=== PATIENT | female | born 1935 | race Caucasian/White ===

== ENCOUNTER 2018-04-20 14:56 | Inpatient (IN) ==
--- NOTE | 2018-04-20 15:37 | Emergency Department Note ---
Disposition Clinical Impression: Dyspnea on exertion Pulmonary embolism Qualifiers: Pulmonary embolism type: other Chronicity: acute Acute cor pulmonale presence: without acute cor pulmonale Qualified Code(s): I26.99 - Other pulmonary embolism without acute cor pulmonale Disposition: Admitted As Inpatient Condition: Good Referrals: Caterina Bernal DO [Primary Care Provider] - Forms: ED Satisfaction Letter Time of Disposition: 18:59 General Adult HPI - General Chief complaint: ED Shortness of Breath/Dyspnea Stated complaint: MAURICE, Leg weakness Time Seen by Provider: 04/20/18 15:05 Source: patient Mode of arrival: ambulatory Limitations: no limitations - History of Present Illness HPI Narrative: This is an 83-year-old female comes to emergency department stating that starting 3 days prior to arrival she has had extreme dyspnea with exertion. It takes her a while to recover after minimal exertion, but at rest she feels fine. She reports no prior similar episodes. She is a liver transplant patient and is on immunosuppression. Pain Scale: 0 - Related Data Allergies Allergy/AdvReac Type Severity Reaction Status Date / Time shellfish derived Allergy Vomiting Verified 04/20/18 15:04 All systems ED: reviewed and negative except as stated. Cardiovascular: Reports: dyspnea on exertion. Denies: chest pain Past Medical History - Past Medical History Medical history: Reports: DVT, hyperlipidemia, hypertension, thyroid disease Psychiatric history: Reports: no psych history - Social History Smoking Status: Former smoker Smokeless Tobacco Status: No Alcohol use: Reports: none Drug use: Reports: none Physical Exam - General Limitations: no limitations General appearance: alert, in distress (In mild to moderate distress after moving from the wheelchair to the bed) - Head Head exam: atraumatic, normocephalic, normal inspection - Eye Eye exam: Present: normal appearance, PERRL, EOMI. Absent: scleral icterus - Chest Chest inspection: Present: normal inspection, symmetric chest wall rise - Respiratory Respiratory exam: Present: normal lung sounds bilaterally, respiratory distress (Mild respiratory distress after effort). Absent: wheezes, stridor, prolonged e xpiratory phase - Cardiovascular Cardiovascular exam: Present: regular rate, normal rhythm, normal heart sounds - Abdominal Exam Abdominal exam: Present: soft, Non-Tender. Absent: tenderness, distention, guarding, rebound, rigidity - Extremities Exam Extremities exam: Present: normal inspection, full ROM, pedal edema (There is 1+ pedal edema at the malleoli) - Neurological Exam Neurological exam: Present: alert, oriented X3 - Psychiatric Psychiatric exam: Present: normal affect, normal mood - Skin Skin exam: Present: warm, dry, intact, normal color Course Course Narrative: This is an 83-year-old female with an exam most concerning for CHF or pulmonary embolism. Vital Signs Temperature 97.4 F L 04/20/18 15:03 Pulse Rate 87 04/20/18 15:03 Respiratory Rate 16 04/20/18 15:03 Blood Pressure 134/83 04/20/18 15:03 O2 Sat by Pulse Oximetry 96 04/20/18 15:03 Temperature 97.4 F L 04/20/18 15:15 Pulse Rate 78 04/20/18 18:24 Respiratory Rate 16 04/20/18 18:24 Blood Pressure 145/95 04/20/18 18:24 O2 Sat by Pulse Oximetry 97 04/20/18 18:24 Oxygen Delivery Oxygen Delivery Room Air Medical Decision Making - MDM Narrative Medical decision making narrative: This is an 83-year-old female with 2-1/2 days of dyspnea on exertion. Evaluation is far as it could be done in the emergency department was concerning for multiple pulmonary emboli, and heparin was ordered because of this. VQ scan was also ordered because renal function was below that would prevent a CT angiog dillon case with the on-call hospitalist, who accepted her for admission. - Lab Data Lab results reviewed: Yes I reviewed the patient's lab results. Lab results narrative: CBC was unremarkable BMP showed BUN elevated at 30 and creatinine elevated 1.68 Troponin was slightly elevated 0.08 [place] [address] Result diagrams: 04/20/18 15:24 04/20/18 15:24 Lab Results 04/20/18 04/20/18 04/20/18 Range/Units 15:24 15:24 15:24 WBC 6.4 (4.3-11.1) K/mcL RBC 4.02 (3.82-4.97) M/mcL Hgb 11.3 L (11.5-15.4) g/dL Hct 36.9 (35.3-44.9) % MCV 91.8 (83.0-100.0) fL MCH 28.1 (28.0-33.3) pg MCHC 30.6 L (31.6-35.5) g/dL RDW 14.9 H (11.5-14.5) % Plt Count 166 (140-400) K/mcL MPV 10.8 (9.4-12.4) fL Immature Gran % 0.3 (0-4) % Seg Neutrophils % 84.1 % Lymphocytes % 6.1 % Monocytes % 8.9 % Eosinophils % 0.3 % Basophils % 0.3 % Neutrophils # 5.4 (1.6-8.9) K/mcL Lymphocytes # 0.4 L (0.6-4.6) K/mcL Monocytes # 0.6 (0.0-1.3) K/mcL Eosinophils # 0.0 (0.0-0.6) K/mcL Basophils # 0.0 (0.0-0.2) K/mcL D-Dimer [id number] H (0-500) ng/mLFEU Sodium 139 (136-145) mEq/L Potassium 4.5 (3.5-5.1) mEq/L Chloride 107 (98-107) mEq/L Carbon Dioxide 20 L (23-29) mEq/L BUN 30 H (8-23) mg/dL Creatinine 1.68 H (0.60-1.20) mg/dL Est GFR ( Amer) 35 L (> 60) Est GFR (Non-Af Amer) 29 L (> 60) BUN/Creatinine Ratio 18 (6-26) Glucose 132 H (70-105) mg/dL Calculated Osmolality 296 (280-300) Lactic Acid (0.5-2.2) mmol/L Calcium 9.5 (8.6-10.3) mg/dL Total Bilirubin 0.9 (0.3-1.0) mg/dL Direct Bilirubin 0.2 (0.0-0.2) mg/dL Indirect Bilirubin 0.7 (0.0-1.2) mg/dL AST 21 (13-39) Units/L ALT 14 (7-52) Units/L Alkaline Phosphatase 78 (34-104) Units/L Troponin I 0.08 H* (< 0.04) ng/mL Serum Total Protein 6.3 L (6.4-8.9) g/dL Albumin 4.0 (3.5-5.7) g/dL Globulin 2.3 L (2.4-3.5) g/dL Albumin/Globulin Ratio 1.7 (1.1-2.2) Specimen Rejected 04/20/18 04/20/18 Range/Units 15:24 17:05 WBC (4.3-11.1) K/mcL RBC (3.82-4.97) M/mcL Hgb (11.5-15.4) g/dL Hct (35.3-44.9) % MCV (83.0-100.0) fL MCH (28.0-33.3) pg MCHC (31.6-35.5) g/dL RDW (11.5-14.5) % Plt Count (140-400) K/mcL MPV (9.4-12.4) fL Immature Gran % (0-4) % Seg Neutrophils % % Lymphocytes % % Monocytes % % Eosinophils % % Basophils % % Neutrophils # (1.6-8.9) K/mcL Lymphocytes # (0.6-4.6) K/mcL Monocytes # (0.0-1.3) K/mcL Eosinophils # (0.0-0.6) K/mcL Basophils # (0.0-0.2) K/mcL D-Dimer (0-500) ng/mLFEU Sodium (136-145) mEq/L Potassium (3.5-5.1) mEq/L Chloride (98-107) mEq/L Carbon Dioxide (23-29) mEq/L BUN (8-23) mg/dL Creatinine (0.60-1.20) mg/dL Est GFR ( Amer) (> 60) Est GFR (Non-Af Amer) (> 60) BUN/Creatinine Ratio (6-26) Glucose (70-105) mg/dL Calculated Osmolality (280-300) Lactic Acid 1.2 (0.5-2.2) mmol/L Calcium (8.6-10.3) mg/dL Total Bilirubin (0.3-1.0) mg/dL Direct Bilirubin (0.0-0.2) mg/dL Indirect Bilirubin (0.0-1.2) mg/dL AST (13-39) Units/L ALT (7-52) Units/L Alkaline Phosphatase (34-104) Units/L Troponin I (< 0.04) ng/mL Serum Total Protein (6.4-8.9) g/dL Albumin (3.5-5.7) g/dL Globulin (2.4-3.5) g/dL Albumin/Globulin Ratio (1.1-2.2) Specimen Rejected Miscellaneous - Radiology Data Radiology results reviewed: Yes I reviewed the patient's radiology results. Chest x-ray was unremarkable CT without contrast was ordered because of her borderline renal function, and was interpreted by radiology as concerning for multiple thromboemboli. - EKG Data EKG #1 EKG attestation: Yes I reviewed and interpreted this EKG. EKG results narrative: ECG shows sinus rhythm, 87 bpm, Q waves in lead 3 and aVF, no other ST or T-wave abnormalities Critical Care Time Critical Care Time: Yes Total Critical Care Time: 30 Attestation: 30 minutes of critical care time was invested independent of separately billable procedures
[2018-04-20 16:02] LABS: Basophils % 0.3 %; Eosinophils % 0.3 %; Hematocrit 36.9 % (35.3-44.9); Hemoglobin 11.3 g/dL (11.5-15.4); Immature Granulocytes % 0.3 % (0-4); Lymphocytes # 0.4 K/mcL (0.6-4.6); Lymphocytes % 6.1 %; Mean Corpuscular HGB Conc 30.6 g/dL (31.6-35.5); Mean Corpuscular Hemoglobin 28.1 pg (28.0-33.3); Mean Corpuscular Volume 91.8 fL (83.0-100.0); Mean Platelet Volume 10.8 fL (9.4-12.4); Monocytes # 0.6 K/mcL (0.0-1.3); Monocytes % 8.9 %; Neutrophils # 5.4 K/mcL (1.6-8.9); Platelet Count 166 K/mcL (140-400); Red Blood Count 4.02 M/mcL (3.82-4.97); Red Cell Distribution Width 14.9 % (11.5-14.5); Segmented Neutrophils % 84.1 %
[2018-04-20 16:24] LABS: Albumin/Globulin Ratio 1.7 (1.1-2.2); Bilirubin,Direct 0.2 mg/dL (0.0-0.2); Bilirubin,Indirect 0.7 mg/dL (0.0-1.2); Bilirubin,Total 0.9 mg/dL (0.3-1.0); Calcium 9.5 mg/dL (8.6-10.3); Globulin 2.3 g/dL (2.4-3.5); Potassium 4.5 mEq/L (3.5-5.1); Total Protein 6.3 g/dL (6.4-8.9)
[2018-04-20 16:28] LABS: Troponin I 0.08 ng/mL (< 0.04)
[2018-04-20] MEDS ORDERED: 0.9 % Sodium Chloride 500 ML IVC ONE (17:08)
[2018-04-20] MEDS ORDERED: *HR* Heparin 5,000 UNIT/ML VIAL IVP ONE ×3 (18:31→21:52)
[2018-04-20] MEDS ORDERED: *HR* Heparin 5,000 UNIT/ML VIAL IVP PRN ×4 (18:33→21:52)
--- NOTE | 2018-04-20 19:39 | Internal Med History&Physical ---
Date of Encounter: 04/22/18 Time of Encounter: 19:39 Internal Medicine - H&P: HPI Chief complaint: SOB History of present illness: Ms. Williamson is a 83 year old female with past medical history of liver transplant on immunosuppressive therapy and hypertension presents with 3 day Hx of extreme dyspnea with exertion. Patient states symptoms began last Thursday night when she noticed shortness of breath after walking approximately 10 feet in her home. Similar symptoms of dyspnea with exertion within her house continued for the next several days having to stop and catch her breath each time. Patient denied any chest pain, pleuritic chest pain, cough, lower extremity edema, orthopnea, PND, lightheadedness or syncope. Patient denies any recent surgery, history of cancer or previous history of blood clots. Patient is normally able to walk without the assistance of a cane or walker. She is a liver transplant recipient over 20 years ago patient and is on immuno suppression. She reports a remote history of smoking. Laboratory findings were notable for an elevated d-dimer of over 21,000 along with an elevation in troponin of 0.08. CT scan of the chest was performed without contrast due to the patient's elevated creatinine which is suggested bilateral filling defects. A VQ scan was subsequently performed which indicated high probability for PE. Patient has been stable from a hemodynamic and respiratory standpoint otherwise. Past Med Surg Social Fam HX - Past Medical History Medical history: DVT, hyperlipidemia, hypertension, thyroid disease Psychiatric history: no psych history - Past Surgical History Additional surgical history: liver transplant, R shoulder replacement, - Social History Smoking Status: Former smoker Smokeless Tobacco Status: No Alcohol use: none Drug use: none Internal Medicine - H&P: Meds Alendronate Sodium [Fosamax] 70 mg PO GREGORY 04/20/18 [History] Aspirin [Lo-Dose Aspirin EC] 81 mg PO DAILY 04/20/18 [History] Atorvastatin [Lipitor] 10 mg PO HS 04/20/18 [History] CycloSPORINE, Mod (Neoral) [Neoral] 25 mg PO BID 04/20/18 [History] Levothyroxine Sodium [Levoxyl] 150 mcg PO DAILY 04/20/18 [History] Losartan Potassium [Cozaar] 100 mg PO DAILY 04/20/18 [History] Mag Hydrox/Al Hydrox/Simeth [Maalox] 15 ml PO Q6HR PRN 04/20/18 [History] Metoprolol [Lopressor] 25 mg PO BID 04/20/18 [History] Mycophenolate Sodium [Myfortic] 360 mg PO BID 04/20/18 [History] Sulfamethoxazole/Trimeth DS [Bactrim DS] 1 each PO DAILY 04/20/18 [History] predniSONE [PredniSONE] 7.5 mg PO DAILY 04/20/18 [History] Apixaban [Eliquis] 5 mg PO AD #74 tablet 04/21/18 [Rx] Allergy/AdvReac Type Severity Reaction Status Date / Time shellfish derived Allergy Vomiting Verified 04/20/18 15:04 All Systems PM: A 10-system review of systems was performed and is negative for pertinent findings except as documented above in the HPI. - Constitutional Constitutional: no chills, no fever(s), no night sweats - EENT Eyes: no change in vision, no discharge, no pain, no photophobia Ears: no ear discharge, no ear pain, no tinnitus Nose, mouth and throat: no dysphagia, no nasal discharge, no neck pain, no sore throat - Cardiovascular Cardiovascular ROS IM: no chest pain, no diaphoresis, no dyspnea, no lightheadedness, no palpitations, no syncope - Respiratory Respiratory: no cough, no dyspnea, no wheezing, no excessive phlegm production - Gastrointestinal Gastrointestinal: no abdominal pain, no diarrhea, no hematemesis, no hematochezia, no melena, no nausea, no vomiting - Genitourinary Genitourinary: no change in urinary stream, no dysuria, no flank pain, no hematuria - Musculoskeletal Musculoskeletal ROS IM: no numbness, no tingling - Integumentary Integumentary IM: no rash, no unusual bruising - Neurological Neurological ROS: no confusion, no convulsions, no focal weakness, no numbness, no tingling, no tremor(s) - Hematologic/Lymphatic Hematologic/Lymphatic: no easy bruising - Constitutional Vitals: Temp Pulse Resp BP Pulse Ox 97.4 F L 78 18 157/99 95 04/20/18 15:15 04/20/18 19:25 04/20/18 19:25 04/20/18 19:25 04/20/18 19:25 Exam: General: Alert and oriented 3; lying in bed in no acute distress Skin:Normal color, no rash, no lesions. HEENT:EOM, pupils equal, round and reactive. Cardiovascular:Normal S1 & S2, no rubs, murmurs or gallops. No JVD. Pulse regu lar. Lungs:Normal breath sounds, no wheezes or crackles. Abdomen:Soft, non-tender, no rigidity. Extremities:No deformity, trace edema b/l; no tenderness, no joint swelling or clubbing. Neurological:Normal cognition and motor skills. Pulses:Carotid and radial pulses normal +2. Rest of the physical exam is non contributory Internal Med - H&P Results - Labs CBC & Chem 7: 04/21/18 04:25 04/21/18 04:25 Labs: Short CBC 04/20/18 Range/Units 15:24 WBC 6.4 (4.3-11.1) K/mcL Hgb 11.3 L (11.5-15.4) g/dL Hct 36.9 (35.3-44.9) % Plt Count 166 (140-400) K/mcL Neutrophils # 5.4 (1.6-8.9) K/mcL BMP 04/20/18 15:24 Sodium 139 Potassium 4.5 Chloride 107 Carbon Dioxide 20 L BUN 30 H Creatinine 1.68 H Glucose 132 H Calcium 9.5 Cardiac Enzymes 04/20/18 Range/Units 15:24 Troponin I 0.08 H* (< 0.04) ng/mL Liver Function 04/20/18 Range/Units 15:24 Total Bilirubin 0.9 (0.3-1.0) mg/dL Direct Bilirubin 0.2 (0.0-0.2) mg/dL AST 21 (13-39) Units/L ALT 14 (7-52) Units/L Alkaline Phosphatase 78 (34-104) Units/L Albumin 4.0 (3.5-5.7) g/dL - Impressions ITS Impressions Chest X-Ray 04/20/18 15:24 IMPRESSION: Aortic tortuosity and questionable mediastinal widening. If there is clinical concern for acute vascular pathology, consider further evaluation with CT chest. No acute lung findings. D/ / Ty Byrd MD / Ty Byrd MD Interpreting Provider: Ty Byrd MD Chest CT 04/20/18 17:08 IMPRESSION: 1. Hyperattenuating lesions within the bilateral segmental pulmonary arteries concerning for acute pulmonary thromboemboli. Recommend CTA of the chest for further evaluation. 2. 8 mm right lower lobe solid pulmonary nodule. RECOMMENDATION: Fleischner Society guidelines for follow-up and management of incidentally detected pulmonary nodules: Single Solid Nodule: Nodule size equals 6-8 mm In a low-risk patient, CT at 6-12 months, then consider CT at 18-24 months. In a high-risk patient, CT at 6-12 months, then CT at 18-24 months. D/ / Nnamdi Mascorro MD / Nnamdi Mascorro MD Interpreting Provider: Nnamdi Mascorro MD - Assessment and plan (1) Dyspnea on exertion Current Visit: Yes Status: Acute Assessment and plan: Dyspnea on upon exertion likely secondary to what appears to be bilateral PE based on a VQ scan showing high probability of PE with mismatch in both the right and left lungs showing what appears to be significant mismatched segmental defects in particular the apicoposterior segment of the right upper lobe and the posterior segment of the left upper lobe on the posterior view. No significant EKG changes were noted. Patient remains stable from a hemodynamic and respiratory standpoint. Continue heparin drip. Echocardiogram in the morning Pulmonary consult (2) Pulmonary embolism Current Visit: Yes Status: Acute Assessment and plan: Evidence of bilateral PE based on VQ scan report. PE appears to be unprovoked. Wells score of 3 giving conferring moderate risk. Unclear whether patient's immunosuppressive therapy or Hx of liver transplant increases risk. Patient has a mildly elevated troponin of 0.08. No evidence of strain on EKG. Patient currently on heparin drip. Continue anticoagulation echocardiogram in the morning Pulmonary consult Supportive care in the interim. Qualifiers: Pulmonary embolism type: other Chronicity: acute Acute cor pulmonale presence: without acute cor pulmonale Qualified Code(s): I26.99 - Other pulmonary embolism without acute cor pulmonale (3) Elevated troponin Current Visit: Yes Status: Acute Assessment and plan: Elevated troponin likely secondary to PE. Patient reports no chest pain and no EKG changes were noted. We will continue to trend. (4) History of liver transplant Current Visit: Yes Status: Acute Assessment and plan: No evidence of infection at this time. We will continue with patient's immunosuppressive medications. (5) CKD (chronic kidney disease) Current Visit: Yes Status: Acute Assessment and plan: Patient appears to have chronic kidney disease who is wearing between stages 3 and 4. Creatinine appears to be around her baseline. We will monitor for now. Qualifiers: Chronic kidney disease stage: unspecified stage Qualified Code(s): N18.9 - Chronic kidney disease, unspecified - Time Spent With Patient Total time spent is greater than 50% in coordination of care (as documented) at patient's floor/unit and/or counseling patient:
[2018-04-20] MEDS ORDERED: Naloxone 0.4 MG/ML INJ IVP PRN (19:41)
[2018-04-20] MEDS ORDERED: 0.9 % Sodium Chloride 1,000 ML IVC SCH (19:45)
[2018-04-20 21:25] LABS: Heparin anti-factor XA UFH 0.04 IU/mL (0.30-0.70); INR 1.1; Prothrombin Time 12.4 Seconds (9.4-12.1)
[2018-04-20 21:27] LABS: Activated Partial Thrombo Time 33.2 Seconds (26.0-36.0)
[2018-04-20] MEDS ORDERED: Heparin 25,000 UNIT/500 ML D5W 25,000 UNIT/500 ML BAG IVC SCH (22:00)
[2018-04-20] MEDS: Heparin 25,000 UNIT/500 ML D5W 25,000 UNIT/500 ML BAG IVC SCH ×2 (22:08→22:31)
[2018-04-20 22:55] LABS: Hematocrit 33.4 % (35.3-44.9); Hemoglobin 10.3 g/dL (11.5-15.4); Mean Corpuscular HGB Conc 30.8 g/dL (31.6-35.5); Mean Corpuscular Hemoglobin 28.4 pg (28.0-33.3); Mean Platelet Volume 10.6 fL (9.4-12.4); Platelet Count 139 K/mcL (140-400); Red Blood Count 3.63 M/mcL (3.82-4.97); Red Cell Distribution Width 14.8 % (11.5-14.5)
[2018-04-21] MEDS ORDERED: CycloSPORINE, Mod (Neoral) 25 MG CAPSULE PO SCH (01:15)
[2018-04-21] MEDS: Mycophenolate Sodium (DR) 180 MG TABLET.DR PO SCH ×3 (02:02→20:15)
[2018-04-21 04:57] LABS: Basophils % 0.5 %; Eosinophils # 0.1 K/mcL (0.0-0.6); Hematocrit 31.6 % (35.3-44.9); Hemoglobin 9.8 g/dL (11.5-15.4); Immature Granulocytes % 0.4 % (0-4); Lymphocytes # 0.6 K/mcL (0.6-4.6); Lymphocytes % 10.5 %; Mean Corpuscular Hemoglobin 28.5 pg (28.0-33.3); Mean Corpuscular Volume 91.9 fL (83.0-100.0); Mean Platelet Volume 10.8 fL (9.4-12.4); Monocytes # 0.9 K/mcL (0.0-1.3); Monocytes % 15.7 %; Platelet Count 138 K/mcL (140-400); Red Blood Count 3.44 M/mcL (3.82-4.97); Segmented Neutrophils % 70.9 %
[2018-04-21 05:04] LABS: INR 1.1; Prothrombin Time 12.8 Seconds (9.4-12.1)
[2018-04-21 05:18] LABS: Albumin 3.3 g/dL (3.5-5.7); Albumin/Globulin Ratio 1.7 (1.1-2.2); Bilirubin,Total 0.6 mg/dL (0.3-1.0); Calcium 8.7 mg/dL (8.6-10.3); Globulin 1.9 g/dL (2.4-3.5); Potassium 4.1 mEq/L (3.5-5.1); Total Protein 5.2 g/dL (6.4-8.9)
[2018-04-21 05:21] LABS: Troponin I 0.06 ng/mL (< 0.04)
--- NOTE | 2018-04-21 07:46 | Internal Med Progress Note ---
Hospitalist Progress Note - Encounter Date of Encounter: 04/22/18 Time of Encounter: 11:00 - Subjective Interval History: Patient presented with shortness of breath found to have pulmonary embolism currently on heparin drip. Will discuss today with patient options for oral anticoagulation with hematology/oncology recommendations. Today's goal is to wean patient off supplemental oxygenation - Exam Vitals: Temp Pulse Resp BP Pulse Ox 97.6 F 78 20 144/89 94 04/21/18 06:36 04/21/18 06:36 04/21/18 06:36 04/21/18 06:36 04/21/18 06:36 Exam: Gen.: Nonacute distress, alert and oriented 3 ENT: Mucosal membranes moist Respiratory: Lungs are clear to auscultation bilaterally without any wheezing rhonchi or rales Cardiovascular: Normal S1 and S2 regular rate rhythm no murmurs rubs or gallops Abdomen: Soft, nontender and nondistended with positive bowel sounds Extremities: No lower extremity edema Skin: Normal color - Assessment and Plan (1) Pulmonary embolism Current Visit: Yes Status: Acute Assessment and Plan: Patient presented with shortness of breath and found to have high probability for pulmonary embolism on VQ scan. Patient requiring supplemental oxygenation at 2 L of nasal cannula satting at 94%; vital signs stable Today's goal is to wean patient off supplemental oxygenation Infection will be held with patient about options for oral anticoagulation with hematology/oncology recommendations (2) Elevated troponin Current Visit: Yes Status: Acute Assessment and Plan: Secondary to demand ischemia due to the above. Troponins have trended downward. Echocardiogram showed LVEF of 50-55% with mild concentric LVH in addition to mild left ventricular diastolic dysfunction with mild pulmonary hypertension and no significant valvular dysfunction. (3) History of liver transplant Current Visit: Yes Status: Acute Assessment and Plan: Patient apparently had a liver transplant over 20 years ago and is on immunosuppressive therapy. Continue with patient's immunosuppressive medications. (4) CKD (chronic kidney disease) stage 3, GFR 30-59 ml/min Current Visit: Yes Status: Acute Assessment and Plan: Stable; creatinine at baseline which appears to be 1.4 Continue to monitor (5) Hypothyroid Current Visit: Yes Status: Acute Assessment and Plan: Continue home dose of levothyroxine (6) HTN (hypertension), benign Current Visit: Yes Status: Acute Assessment and Plan: Controlled; continue home dose of metoprolol tartrate and losartan (7) Hyperlipidemia Current Visit: Yes Status: Acute Assessment and Plan: Continue atorvastatin DVT Prophylaxis: Heparin drip as above - Time Spent with Patient Total time spent is greater than 50% in coordination of care (as documented) at patient's floor/unit and/or counseling patient: Internal Medicine: Result - Labs CBC & Chem 7: 04/21/18 04:25 04/21/18 04:25 Labs: Short CBC 04/20/18 04/20/18 04/21/18 Range/Units 15:24 22:37 04:25 WBC 6.4 5.3 5.6 (4.3-11.1) K/mcL Hgb 11.3 L 10.3 L 9.8 L (11.5-15.4) g/dL Hct 36.9 33.4 L 31.6 L (35.3-44.9) % Plt Count 166 139 L 138 L (140-400) K/mcL Neutrophils # 5.4 4.0 (1.6-8.9) K/mcL BMP 04/20/18 04/21/18 15:24 04:25 Sodium 139 142 Potassium 4.5 4.1 Chloride 107 112 H Carbon Dioxide 20 L 21 L BUN 30 H 27 H Creatinine 1.68 H 1.43 H Glucose 132 H 119 H Calcium 9.5 8.7 Cardiac Enzymes 04/20/18 04/20/18 04/21/18 Range/Units 15:24 21:01 04:25 Troponin I 0.08 H* 0.07 H* 0.06 H* (< 0.04) ng/mL Liver Function 04/20/18 04/21/18 Range/Units 15:24 04:25 Total Bilirubin 0.9 0.6 (0.3-1.0) mg/dL Direct Bilirubin 0.2 (0.0-0.2) mg/dL AST 21 17 (13-39) Units/L ALT 14 12 (7-52) Units/L Alkaline Phosphatase 78 67 (34-104) Units/L Albumin 4.0 3.3 L (3.5-5.7) g/dL - ABG Interpretation ABG results: PT/INR, D-dimer PT 12.8 Seconds (9.4-12.1) H 04/21/18 04:25 D-Dimer [id number] ng/mLFEU (0-500) H 04/20/18 15:24 - Impressions Impressions Chest X-Ray 04/20/18 15:24 IMPRESSION: Aortic tortuosity and questionable mediastinal widening. If there is clinical concern for acute vascular pathology, consider further evaluation with CT chest. No acute lung findings. D/ / Ty Byrd MD / Ty Byrd MD Interpreting Provider: Ty Byrd MD Chest CT 04/20/18 17:08 IMPRESSION: 1. Hyperattenuating lesions within the bilateral segmental pulmonary arteries concerning for acute pulmonary thromboemboli. Recommend CTA of the chest for further evaluation. 2. 8 mm right lower lobe solid pulmonary nodule. RECOMMENDATION: Fleischner Society guidelines for follow-up and management of incidentally detected pulmonary nodules: Single Solid Nodule: Nodule size equals 6-8 mm In a low-risk patient, CT at 6-12 months, then consider CT at 18-24 months. In a high-risk patient, CT at 6-12 months, then CT at 18-24 months. D/ / Nnamdi Mascorro MD / Nnamdi Mascorro MD Interpreting Provider: Nnamdi Mascorro MD Pulmonary Perfusion Imaging 04/20/18 17:25 IMPRESSION: High probability for pulmonary embolism. The findings were sent to the Radiology Results Communication Center at 9:30 pm on 04/20/2018to be communicated to a licensed caregiver. D/ / Frankie Rodriguez MD / Frankie Rodriguez MD Interpreting Provider: Frankie Rodriguez MD Consult Discharge Plan - Plan Referrals: Caterina Bernal DO [Primary Care Provider] - Prescriptions: Apixaban [Eliquis] 5 mg PO AD #74 tablet _ (1) Pulmonary embolism Qualifiers: Pulmonary embolism type: other Chronicity: acute Acute cor pulmonale presence: without acute cor pulmonale Qualified Code(s): I26.99 - Other pulmonary embolism without acute cor pulmonale
[2018-04-21] MEDS: predniSONE 5 MG TABLET PO SCH (08:17)
[2018-04-21] MEDS: Sulfamethoxazole/Trimeth DS 1 EACH TABLET PO SCH (08:17)
--- NOTE | 2018-04-21 10:05 | Oncology Inp Consult Note ---
<Sami Eli Baljinder - Last Filed: 04/21/18 16:43> Date of Encounter: 04/21/18 Time of Encounter: 09:30 Assessment and Plan (1) Pulmonary embolism Status: Acute Assessment and plan: Evidence of PE on CT without contrast as well as V/Q scan with high probability. First episode of unprovoked DVT or PE, patient is on aspirin 81 mg at home. History of Liver transplant on intermediate accountant immunosuppression as well as stage III CKD, patient is at baseline clearance in the low 30's Patient is likely at moderate risk of bleeding on anticoagulation. Plan: For first unprovoked PE anticoagulation is recommended, duration of therapy is typically at least 3 months with recommendation for re-evaluation at 3 months and discussion of longer duration treatment if warranted at that time. Patient liver function remains good, ckd-III stable with clearance in the low 30's. care home anti-coagulation with NOAC such as Rivaroxaban could be considered in this patient given her clearance is >30 and stable hepatic function. Alterative treatment with Warfarin is also an option and would be safe in her chronic illnesses, however NOAC's are typically preferred when renal function will allow. If patient renal status worsens to a creatinine clearance of <30 or a creatinine of >1.5 a transition to warfarin as first line therapy should then be considered. Will plan to discuss these options with patient on rounds this afternoon with attending electric motor controls assembler. Qualifiers: Pulmonary embolism type: other Chronicity: acute Acute cor pulmonale presence: without acute cor pulmonale Qualified Code(s): I26.99 - Other pulmonary embolism without acute cor pulmonale (2) CKD (chronic kidney disease) stage 3, GFR 30-59 ml/min Status: Acute Assessment and plan: CKD-III with some acute worsening at presentation. Now patient is at her baseline renal function Avoid nephrotoxic agents as able. (3) History of liver transplant Status: Acute Assessment and plan: Stable transplant on intermediate accountant immunosuppression. Patient follow with [facility] transplant surgeon Dr. Dotson - Data of Consult Patient: new to practice Consult date: 04/21/18 Requesting Physician: Nikhil Miller MD Primary Care Provider: Caterina Bernal DO - Consult Narrative Reason for consult: Anticoagulation hx of liver transplant, ckd-3 History of present illness: Ms. Williamson is a 83 year old female with a history of liver transplant 22 years ago, on immunosuppression with mycophenalate and cyclosporine. Follow at [facility] with Dr. Dotson. Additionally patient reports history of squamous cell carcinoma of the skin. Patient presented for evaluation yesterday with chief complaint of worsening shortness of breath. Reports symptoms began on Thursday evening, beginning with shortness of breath with minimal ambulation. She normally ambulates well throughout her home without the assistance of the cane or walker. Subjective shortness of breath worsened until presentation. Patient denies chest pain, pleuritic pain, cough, lower extremity swelling, orthopnea, dizziness or syncope. She denies history of DVT or PE and no recent surgery. Remote history of smoking. Denies hormonal supplementation. Denies history of coronary artery disease or stroke. Upon evaluation in the ED her d-dimer was found to be elevated at greater than 21,000, a CT of the chest without contrast was obtained with findings concerning for pulmonary artery filling defects. Subsequently a E/Q scan was obtained with a high probability of pulmonary embolism. Since admission patient remains hemodynamically stable. She is currently on a heparin drip. She reports mild improvement in shortness of breath. Hematology was consulted for anticoagulation recommendations given history of liver transplantation and CKD-3. Past Med Surg Social Fam HX - Past Medical History Medical history: DVT, hyperlipidemia, hypertension, thyroid disease Psychiatric history: no psych history - Past Surgical History Additional surgical history: liver transplant, R shoulder replacement, - Social History Smoking Status: Former smoker Smokeless Tobacco Status: No Alcohol use: none Drug use: none Medications and Allergies RX: Alendronate Sodium [Fosamax] 70 mg PO GREGORY 04/20/18 [History] RX: Aspirin [Lo-Dose Aspirin EC] 81 mg PO DAILY 04/20/18 [History] RX: Atorvastatin [Lipitor] 10 mg PO HS 04/20/18 [History] RX: CycloSPORINE, Mod (Neoral) [Neoral] 25 mg PO BID 04/20/18 [History] RX: Levothyroxine Sodium [Levoxyl] 150 mcg PO DAILY 04/20/18 [History] RX: Losartan Potassium [Cozaar] 100 mg PO DAILY 04/20/18 [History] RX: Mag Hydrox/Al Hydrox/Simeth [Maalox] 15 ml PO Q6HR PRN 04/20/18 [History] RX: Metoprolol [Lopressor] 25 mg PO BID 04/20/18 [History] RX: Mycophenolate Sodium [Myfortic] 360 mg PO BID 04/20/18 [History] RX: Sulfamethoxazole/Trimeth DS [Bactrim Ds] 1 each PO DAILY 04/20/18 [History] RX: predniSONE [PredniSONE] 7.5 mg PO DAILY 04/20/18 [History] Apixaban [Eliquis] 5 mg PO AD #74 tablet 04/21/18 [Rx] Allergy/AdvReac Type Severity Reaction Status Date / Time shellfish derived Allergy Vomiting Verified 04/20/18 15:04 Constitutional: Present: weakness. Absent: fever(s) Eyes: Absent: change in vision Nose, mouth and throat: Absent: dizziness, dysphagia Breasts: Absent: change in shape, mass Cardiovascular: Present: dyspnea on exertion. Absent: chest pain Respiratory: Present: dyspnea on exertion. Absent: cough, hemoptysis Gastrointestinal: Absent: abdominal pain, change in bowel habits, constipation, hematemesis, hematochezia, melena Musculoskeletal: Absent: abnormal gait Neurological: Absent: dizziness, syncope Endocrine: Absent: excessive sweating, palpitations, polyphagia, polyuria Hematologic/Lymphatic: Present: easy bruising. Absent: easy bleeding, lymphadenopathy Oncology - Exam - Constitutional Vitals: Temp Pulse Resp BP Pulse Ox 97.6 F 78 20 144/89 94 04/21/18 06:36 04/21/18 06:36 04/21/18 06:36 04/21/18 06:36 04/21/18 06:36 General appearance: average body habitus, no acute distress - Head Head exam: Present: atraumatic, normocephalic - Eye Eye exam: Present: EOMI, PERRL, conjuntiva pink - ENT ENT exam: Present: mucous membranes moist - Neck Neck exam: Present: full ROM. Absent: lymphadenopathy, tenderness - Respiratory Respiratory exam: Present: CTAB. Absent: respiratory distress, wheezes - Cardiovascular Cardiovascular exam: Present: RRR, +S1, +S2 - GI/Abdominal GI/Abdominal exam: Present: normal bowel sounds, soft. Absent: distended, tenderness - Extremities Exam Additional comments: Significant ecchymosis of the right upper extremity due to blood pressure cuff. Bilateral lower extremity evidence of chronic venous stasis. Minimal lower extremity edema. - Back Exam Back exam: Present: normal inspection - Neurological Exam Neurological exam: Present: alert, CN II-XII intact, oriented X3 - Psychiatric Psychiatric exam: Present: normal affect, normal mood - Skin Additional comments: 1 x 1 cm actinic keratosis of the right shoulder Oncology - Results Labs: 04/21/18 04/21/18 04/21/18 04:25 04:25 04:25 WBC RBC Hgb Hct MCV MCH MCHC RDW Plt Count MPV Immature Gran % Seg Neutrophils % Lymphocytes % Monocytes % Eosinophils % Basophils % Neutrophils # Lymphocytes # Monocytes # Eosinophils # Basophils # PT 12.8 H INR 1.1 APTT D-Dimer Heparin Anti-Xa, Unfract 0.98 H Sodium 142 Potassium 4.1 Chloride 112 H Carbon Dioxide 21 L BUN 27 H Creatinine 1.43 H Est GFR ( Amer) 43 L Est GFR (Non-Af Amer) 35 L BUN/Creatinine Ratio 19 Glucose 119 H Calculated Osmolality 300 Lactic Acid Calcium 8.7 Total Bilirubin 0.6 Direct Bilirubin Indirect Bilirubin AST 17 ALT 12 Alkaline Phosphatase 67 Troponin I 0.06 H* B-Natriuretic Peptide Serum Total Protein 5.2 L Albumin 3.3 L Globulin 1.9 L Albumin/Globulin Ratio 1.7 Specimen Rejected 04/21/18 04/20/18 04/20/18 04:25 22:37 21:01 WBC 5.6 5.3 RBC 3.44 L 3.63 L Hgb 9.8 L 10.3 L Hct 31.6 L 33.4 L MCV 91.9 92.0 MCH 28.5 28.4 MCHC 31.0 L 30.8 L RDW 15.0 H 14.8 H Plt Count 138 L 139 L MPV 10.8 10.6 Immature Gran % 0.4 Seg Neutrophils % 70.9 Lymphocytes % 10.5 Monocytes % 15.7 Eosinophils % 2.0 Basophils % 0.5 Neutrophils # 4.0 Lymphocytes # 0.6 Monocytes # 0.9 Eosinophils # 0.1 Basophils # 0.0 PT 12.4 H INR 1.1 APTT 33.2 D-Dimer Heparin Anti-Xa, Unfract 0.04 L Sodium Potassium Chloride Carbon Dioxide BUN Creatinine Est GFR ( Amer) Est GFR (Non-Af Amer) BUN/Creatinine Ratio Glucose Calculated Osmolality Lactic Acid Calcium Total Bilirubin Direct Bilirubin Indirect Bilirubin AST ALT Alkaline Phosphatase Troponin I B-Natriuretic Peptide Serum Total Protein Albumin Globulin Albumin/Globulin Ratio Specimen Rejected 04/20/18 04/20/18 04/20/18 21:01 17:05 15:45 WBC RBC Hgb Hct MCV MCH MCHC RDW Plt Count MPV Immature Gran % Seg Neutrophils % Lymphocytes % Monocytes % Eosinophils % Basophils % Neutrophils # Lymphocytes # Monocytes # Eosinophils # Basophils # PT INR APTT D-Dimer Heparin Anti-Xa, Unfract Sodium Potassium Chloride Carbon Dioxide BUN Creatinine Est GFR ( Amer) Est GFR (Non-Af Amer) BUN/Creatinine Ratio Glucose Calculated Osmolality Lactic Acid 1.2 Calcium Total Bilirubin Direct Bilirubin Indirect Bilirubin AST ALT Alkaline Phosphatase Troponin I 0.07 H* B-Natriuretic Peptide 484 H Serum Total Protein Albumin Globulin Albumin/Globulin Ratio Specimen Rejected 04/20/18 04/20/18 04/20/18 15:24 15:24 15:24 WBC RBC Hgb Hct MCV MCH MCHC RDW Plt Count MPV Immature Gran % Seg Neutrophils % Lymphocytes % Monocytes % Eosinophils % Basophils % Neutrophils # Lymphocytes # Monocytes # Eosinophils # Basophils # PT INR APTT D-Dimer 60586 H Heparin Anti-Xa, Unfract Sodium 139 Potassium 4.5 Chloride 107 Carbon Dioxide 20 L BUN 30 H Creatinine 1.68 H Est GFR ( Amer) 35 L Est GFR (Non-Af Amer) 29 L BUN/Creatinine Ratio 18 Glucose 132 H Calculated Osmolality 296 Lactic Acid Calcium 9.5 Total Bilirubin 0.9 Direct Bilirubin 0.2 Indirect Bilirubin 0.7 AST 21 ALT 14 Alkaline Phosphatase 78 Troponin I 0.08 H* B-Natriuretic Peptide Serum Total Protein 6.3 L Albumin 4.0 Globulin 2.3 L Albumin/Globulin Ratio 1.7 Specimen Rejected Miscellaneous 04/20/18 15:24 WBC 6.4 RBC 4.02 Hgb 11.3 L Hct 36.9 MCV 91.8 MCH 28.1 MCHC 30.6 L RDW 14.9 H Plt Count 166 MPV 10.8 Immature Gran % 0.3 Seg Neutrophils % 84.1 Lymphocytes % 6.1 Monocytes % 8.9 Eosinophils % 0.3 Basophils % 0.3 Neutrophils # 5.4 Lymphocytes # 0.4 L Monocytes # 0.6 Eosinophils # 0.0 Basophils # 0.0 PT INR APTT D-Dimer Heparin Anti-Xa, Unfract Sodium Potassium Chloride Carbon Dioxide BUN Creatinine Est GFR ( Amer) Est GFR (Non-Af Amer) BUN/Creatinine Ratio Glucose Calculated Osmolality Lactic Acid Calcium Total Bilirubin Direct Bilirubin Indirect Bilirubin AST ALT Alkaline Phosphatase Troponin I B-Natriuretic Peptide Serum Total Protein Albumin Globulin Albumin/Globulin Ratio Specimen Rejected Consult Discharge Plan - Plan Instructions: Apixaban (By mouth), Pulmonary Embolism (DC), Pulmonary Embolism (GEN), Deep Venous Thrombosis (DC), Deep Venous Thrombosis (GEN) Referrals: Caterina Bernal DO [Primary Care Provider] - 04/27/18 10:20 am Jemima Moe MD [Partnered Physician] - 05/04/18 9:00 am <Jemima Moe - Last Filed: 04/22/18 18:58> Date of Encounter: 04/21/18 - Data of Consult Requesting Physician: Nikhil Miller MD Primary Care Provider: Caterina Bernal DO - Consult Narrative History of present illness: Ms. Williamson is a 83 year old female Oncology - Exam - Constitutional Vitals: Temp Pulse Resp BP Pulse Ox 97.9 F 117 20 142/95 95 04/21/18 16:13 04/21/18 16:13 04/21/18 16:13 04/21/18 16:13 04/21/18 16:13 Oncology - Results Labs: 04/21/18 04/21/18 04/21/18 13:19 04:25 04:25 WBC RBC Hgb Hct MCV MCH MCHC RDW Plt Count MPV Immature Gran % Seg Neutrophils % Lymphocytes % Monocytes % Eosinophils % Basophils % Neutrophils # Lymphocytes # Monocytes # Eosinophils # Basophils # PT INR APTT D-Dimer Heparin Anti-Xa, Unfract 0.48 0.98 H Sodium 142 Potassium 4.1 Chloride 112 H Carbon Dioxide 21 L BUN 27 H Creatinine 1.43 H Est GFR ( Amer) 43 L Est GFR (Non-Af Amer) 35 L BUN/Creatinine Ratio 19 Glucose 119 H Calculated Osmolality 300 Lactic Acid Calcium 8.7 Total Bilirubin 0.6 Direct Bilirubin Indirect Bilirubin AST 17 ALT 12 Alkaline Phosphatase 67 Troponin I 0.06 H* B-Natriuretic Peptide Serum Total Protein 5.2 L Albumin 3.3 L Globulin 1.9 L Albumin/Globulin Ratio 1.7 Specimen Rejected 04/21/18 04/21/18 04/20/18 04:25 04:25 22:37 WBC 5.6 5.3 RBC 3.44 L 3.63 L Hgb 9.8 L 10.3 L Hct 31.6 L 33.4 L MCV 91.9 92.0 MCH 28.5 28.4 MCHC 31.0 L 30.8 L RDW 15.0 H 14.8 H Plt Count 138 L 139 L MPV 10.8 10.6 Immature Gran % 0.4 Seg Neutrophils % 70.9 Lymphocytes % 10.5 Monocytes % 15.7 Eosinophils % 2.0 Basophils % 0.5 Neutrophils # 4.0 Lymphocytes # 0.6 Monocytes # 0.9 Eosinophils # 0.1 Basophils # 0.0 PT 12.8 H INR 1.1 APTT D-Dimer Heparin Anti-Xa, Unfract Sodium Potassium Chloride Carbon Dioxide BUN Creatinine Est GFR ( Amer) Est GFR (Non-Af Amer) BUN/Creatinine Ratio Glucose Calculated Osmolality Lactic Acid Calcium Total Bilirubin Direct Bilirubin Indirect Bilirubin AST ALT Alkaline Phosphatase Troponin I B-Natriuretic Peptide Serum Total Protein Albumin Globulin Albumin/Globulin Ratio Specimen Rejected 04/20/18 04/20/18 04/20/18 21:01 21:01 17:05 WBC RBC Hgb Hct MCV MCH MCHC RDW Plt Count MPV Immature Gran % Seg Neutrophils % Lymphocytes % Monocytes % Eosinophils % Basophils % Neutrophils # Lymphocytes # Monocytes # Eosinophils # Basophils # PT 12.4 H INR 1.1 APTT 33.2 D-Dimer Heparin Anti-Xa, Unfract 0.04 L Sodium Potassium Chloride Carbon Dioxide BUN Creatinine Est GFR ( Amer) Est GFR (Non-Af Amer) BUN/Creatinine Ratio Glucose Calculated Osmolality Lactic Acid 1.2 Calcium Total Bilirubin Direct Bilirubin Indirect Bilirubin AST ALT Alkaline Phosphatase Troponin I 0.07 H* B-Natriuretic Peptide Serum Total Protein Albumin Globulin Albumin/Globulin Ratio Specimen Rejected 04/20/18 04/20/18 04/20/18 15:45 15:24 15:24 WBC RBC Hgb Hct MCV MCH MCHC RDW Plt Count MPV Immature Gran % Seg Neutrophils % Lymphocytes % Monocytes % Eosinophils % Basophils % Neutrophils # Lymphocytes # Monocytes # Eosinophils # Basophils # PT INR APTT D-Dimer Heparin Anti-Xa, Unfract Sodium 139 Potassium 4.5 Chloride 107 Carbon Dioxide 20 L BUN 30 H Creatinine 1.68 H Est GFR ( Amer) 35 L Est GFR (Non-Af Amer) 29 L BUN/Creatinine Ratio 18 Glucose 132 H Calculated Osmolality 296 Lactic Acid Calcium 9.5 Total Bilirubin 0.9 Direct Bilirubin 0.2 Indirect Bilirubin 0.7 AST 21 ALT 14 Alkaline Phosphatase 78 Troponin I 0.08 H* B-Natriuretic Peptide 484 H Serum Total Protein 6.3 L Albumin 4.0 Globulin 2.3 L Albumin/Globulin Ratio 1.7 Specimen Rejected Miscellaneous 04/20/18 04/20/18 15:24 15:24 WBC 6.4 RBC 4.02 Hgb 11.3 L Hct 36.9 MCV 91.8 MCH 28.1 MCHC 30.6 L RDW 14.9 H Plt Count 166 MPV 10.8 Immature Gran % 0.3 Seg Neutrophils % 84.1 Lymphocytes % 6.1 Monocytes % 8.9 Eosinophils % 0.3 Basophils % 0.3 Neutrophils # 5.4 Lymphocytes # 0.4 L Monocytes # 0.6 Eosinophils # 0.0 Basophils # 0.0 PT INR APTT D-Dimer 07177 H Heparin Anti-Xa, Unfract Sodium Potassium Chloride Carbon Dioxide BUN Creatinine Est GFR ( Amer) Est GFR (Non-Af Amer) BUN/Creatinine Ratio Glucose Calculated Osmolality Lactic Acid Calcium Total Bilirubin Direct Bilirubin Indirect Bilirubin AST ALT Alkaline Phosphatase Troponin I B-Natriuretic Peptide Serum Total Protein Albumin Globulin Albumin/Globulin Ratio Specimen Rejected - Attending Attestation 1. Admitted with acute bilateral PE 1with elevated d-dimer of 22,000. Filling defects on the right and left pulmonary artery seen noncontrast CT chest and VQ scan high probability for PE Proceed with bilateral lower activity venous Doppler Etiology of acute thromboembolic event not clear. This is considered unprovoked 2. Acute kidney injury creatinine up to 1.65. It has improved to 1.45 which is her baseline with creatinine clearance around 35 Reviewed the literature. Coumadin is safe in the setting of kidney disease. Apixaban is also serviceable alternate. Recommend 5 mg by mouth twice a day for first few weeks then reduce the dose to 2.5 mg by mouth twice a day can be done as an outpatient. 3. Orthotic liver transplant 22 years ago. Currently on immunosuppression with cyclosporin and MM mass Inpatient Charges Provider: Dr. Gabriel Moe Consult - Inpatient: [id number]
[2018-04-21] MEDS: NEORAL 25 MG PO SCH ×2 (12:29→20:16)
--- NOTE | 2018-04-21 15:52 | Electrocardiograph Report ---
[place] [id number] Test Date: 2018-04-20 Pat Name: Pamella Williamson Department: [id number] Room: 2NE16 Gender: F Plant Superintendent: : [id number] Requested By: Aaron Alfred Order Number: [id number] Reading MD: Frankie Landa Measurements Intervals [place] Rate: 87 P: 25 VT: 187 QRS: 19 QRSD: 103 T: 161 QT: 386 QTc: 465 Interpretive Statements Sinus rhythm Anteroseptal infarct, age undetermined Inferior infarct, age undetermined Nonspecific ST-T changes Electronically Signed On 04-21-2018 15:50:10 EST by Frankie Landa
[2018-04-22] MEDS: Heparin 25,000 UNIT/500 ML D5W 25,000 UNIT/500 ML BAG IVC SCH (01:09)
[2018-04-22 06:51] VITALS: BP 144/89
[2018-04-22] MEDS: predniSONE 5 MG TABLET PO SCH (09:47)
[2018-04-22] MEDS: Sulfamethoxazole/Trimeth DS 1 EACH TABLET PO SCH (09:47)
[2018-04-22] MEDS: Mycophenolate Sodium (DR) 180 MG TABLET.DR PO SCH (09:47)
[2018-04-22] MEDS: NEORAL 25 MG PO SCH (09:51)
--- NOTE | 2018-04-22 09:56 | Oncology Inp Progress Note ---
Date of Encounter: 04/22/18 Time of Encounter: 09:53 (1) Pulmonary embolism Current Visit: Yes Status: Acute Assessment and plan: Evidence of PE on CT without contrast as well as V/Q scan with high probability. First episode of unprovoked DVT or PE. History of Liver transplant on fdc immunosuppression as well as stage III CKD, patient is at baseline clearance in the low 30's Patient is at mild to moderate risk of bleeding on anticoagulation. Plan: For first unprovoked PE anticoagulation is recommended, duration of therapy is typically at least 3 months with recommendation for re-evaluation at 3 months and discussion of longer duration treatment if warranted at that time. Patient liver function remains good, ckd-III stable with clearance in the low 30's as calculated by the cockcroft-gault equation. [facility] anti-coagulation with NOAC such as Abixaban could be considered in this patient given her clearance is >30 and stable hepatic function. Alterative treatment with Warfarin is also an option and would be safe in her chronic illnesses, however NOAC's are typically preferred when renal function will allow. We have discussed options with patient and her daughter. They are most interested in Eliquis option at this time. Recommend continuation of Heparin through today and then may transition to oral anticoagulation. Eliquis dosing for this patient at 5 mg BID for the first 2-3 weeks and then decrease dose to 2.[address] Moe would like to see her in outpatient follow up 7-10 days after discharge. Qualifiers: Pulmonary embolism type: other Chronicity: acute Acute cor pulmonale presence: without acute cor pulmonale Qualified Code(s): I26.99 - Other pulmonary embolism without acute cor pulmonale (2) CKD (chronic kidney disease) stage 3, GFR 30-59 ml/min Current Visit: Yes Status: Acute Assessment and plan: CKD-III with some acute worsening at presentation. Now patient is at her baseline renal function Avoid nephrotoxic agents as able. (3) History of liver transplant Current Visit: Yes Status: Acute Assessment and plan: Stable transplant on watermelon inspector immunosuppression. Patient follow with [facility] transplant surgeon Dr. Dotson Oncology: Subj Interval history: Patient seen and evaluated at the bedside. Now saturating in the mid 90's on room air. No subjective shortness of breath at rest. Reports no new or worsening symptoms. Able to ambulate well through her room and to the restroom with assistance for IV pole. No bleeding reported. Denies nausea, vomiting, bowel change, headache, dizziness, or chest pain. - Constitutional Vitals: Vital Signs Temp Pulse Resp BP Pulse Ox 04/22/18 06:47 97.9 F 76 16 144/89 96 04/22/18 05:05 98.1 F 77 16 134/83 90 04/22/18 01:57 97.8 F 90 18 140/90 90 04/21/18 19:28 98.2 F 85 18 153/95 93 04/21/18 16:13 97.9 F 117 20 142/95 95 04/21/18 11:16 97.5 F L 79 21 115/73 95 Intake and Output 04/21/18 04/22/18 04/22/18 23:59 07:59 15:59 Intake Total 440 / 440 161 / 161 480 / 480 Output Total 600 / 600 950 / 950 100 / 100 Balance -160 / -160 -789 / -789 380 / 380 Intake: IV Fluids 200 / 200 161 / 161 Heparin 25,000 UNIT/500 ML D5W 200 / 200 161 / 161 25,000 unit In 500 ml @ 14 UNIT /KG/HR 23.534 mls/hr IVC . [id number] [facility] Rx#:[id number] Oral 240 / 240 0 / 0 480 / 480 Output: Urine 600 / 600 950 / 950 100 / 100 Other: Meal Dinner Breakfast Percent of Meal Consumed 95% 100% # Voids 0 Weight 84.7 kg Patient Weight 04/22/18 23:59 Weight 84.7 kg General appearance: average body habitus, no acute distress - Head Head exam: Present: atraumatic, normocephalic - Eye Eye exam: Present: EOMI, PERRL, conjuntiva pink - ENT ENT exam: Present: mucous membranes moist - Neck Neck exam: Absent: lymphadenopathy, tenderness - Respiratory Respiratory exam: Present: CTAB. Absent: respiratory distress - Cardiovascular Cardiovascular exam: Present: RRR, +S1, +S2 - GI/Abdominal GI/Abdominal exam: Present: normal bowel sounds, soft. Absent: distended, rigid, tenderness - Extremities Exam Additional comments: Mild bilateral lower extremity edema with evidence of chronic venous stasis Ecchymosis of bilateral upper extremities, on the right in the region of the blood pressure cuff, on the left near a previous IV access point. - Back Exam Back exam: Present: normal inspection - Neurological Exam Neurological exam: Present: alert, CN II-XII intact, oriented X3 - Psychiatric Psychiatric exam: Present: normal affect, normal mood - Skin Skin exam: Present: dry Oncology: Obj Data - Labs CBC & Chem 7: 04/21/18 04:25 04/21/18 04:25 Labs: Laboratory Results - last 24 hr 04/21/18 04/21/18 04/22/18 13:19 20:50 03:58 Heparin Anti-Xa, Unfract 0.48 0.38 0.45 - Impressions Impressions Echocardiogram 04/21/18 01:02 Impressions: LVEF 50-55%. Mild concentric left ventricular hypertrophy. Mild left ventricular diastolic dysfunction. Mild pulmonary hypertension. Mildly dilated right ventricle with normal systolic function. No significant valvular dysfunction. Left Ventricular Wall Motion: Rest Echo Findings All wall segments showed normal motion. Findings: Study Quality * Technically adequate exam. ECG Findings * Normal sinus rhythm. Left Ventricle * LVEF 50-55%. * Mild concentric left ventricular hypertrophy. * Mild left ventricular diastolic dysfunction. Right Ventricle * Mildly dilated right ventricle. Left Atrium * Mildly dilated left atrium. Right Atrium * Mildly dilated right atrium. Interatrial Septum * No evidence of PFO by color Doppler. Aortic Valve * Trileaflet aortic valve. * No aortic regurgitation. * No aortic stenosis. * Normal aortic valve structure. Mitral Valve * Normal mitral valve structure. * No mitral regurgitation. * No mitral stenosis. Tricuspid Valve * Trace tricuspid regurgitation. * Normal tricuspid valve structure. * No tricuspid stenosis. * Mild pulmonary hypertension. * Estimated RVSP is 32 mmHg. * Estimated RA pressure is 5 mmHg. Pulmonic Valve * Trace pulmonic regurgitation. Aorta * Normally sized aortic root. Pericardium * The pericardium appears normal. IVC * Normal IVC dimensions and inspiratory collapse. Pulmonary Artery * Normal visualized portions of the main pulmonary artery. - ABG Interpretation ABG results: PT/INR, D-dimer PT 12.8 Seconds (9.4-12.1) H 04/21/18 04:25 D-Dimer 15481 ng/mLFEU (0-500) H 04/20/18 15:24 Consult Discharge Plan - Plan Referrals: Caterina Bernal DO [Primary Care Provider] - Prescriptions: Apixaban [Eliquis] 5 mg PO AD #74 tablet
[2018-04-22] MEDS ORDERED: Acetaminophen 325 MG TABLET PO PRN (10:03)
[2018-04-22] MEDS ORDERED: Apixaban 5 MG TABLET PO SCH (10:45)
--- NOTE | 2018-04-22 12:46 | Discharge Summary ---
- NOTES TO OUTPATIENT PROVIDER Notes to Outpatient Provider: Follow-up with hematology oncology and primary care provider. Orders not resulted at time of discharge: Pending orders 04/23/18 04:31 Heparin anti-factor XA UFH [COAG] Timed Date of Encounter: 04/22/18 Time of Encounter: 11:00 - Discharge Diagnosis (1) Dyspnea on exertion Priority: Primary Status: Acute (2) Pulmonary embolism Priority: Primary Status: Acute Qualifiers: Pulmonary embolism type: other Chronicity: acute Acute cor pulmonale presence: without acute cor pulmonale Qualified Code(s): I26.99 - Other pulmonary embolism without acute cor pulmonale (3) History of liver transplant Priority: Secondary Status: Acute (4) CKD (chronic kidney disease) Priority: Secondary Status: Acute Qualifiers: Chronic kidney disease stage: unspecified stage Qualified Code(s): N18.9 - Chronic kidney disease, unspecified (5) Elevated troponin Priority: Primary Status: Acute Hospital course: Patient is an 83-year-old female with past medical history significant for liver transplant on immunosuppressive therapy and hypertension who presented to the ER on 04/20/18 due to shortness of breath. Patient reported of a 3 day history of shortness of breath with exertion. She denied any chest pain, syncopal episodes or lightheaded/dizziness. Patient was concerned and so decided to come to the ER for evaluation. In the ER, patient was found to have elevated d-dimer of over 21,000 along with an elevation in troponin of 0.08. CT scan of the chest was performed without contrast due to the patient's elevated creatinine which is suggested bilateral filling defects. A VQ scan was subsequently performed which indicated high probability for PE. Patient was stable from a hemodynamic and respiratory standpoint otherwise. She was admitted to medical surgical floor for further management and evaluation. During patients hospital stay she was on heparin drip and was able to be weaned off supplemental oxygenation. Echocardiogram showed LVEF of 50-55% with mild concentric LVH with mild left ventricular diastolic dysfunction but no significant valvular dysfunction. Lower extremity Dopplers revealed acute SVT in the right greater saphenous vein. Patient will be discharged on Eliquis for 3 months to be reevaluated by primary care provider. - Time Spent with Patient Total time spent providing and/or coordinating discharge services: Less than 30 minutes - Discharge Medications Home Medications: Alendronate Sodium [Fosamax] 70 mg PO GREGORY 04/20/18 [History] Aspirin [Lo-Dose Aspirin EC] 81 mg PO DAILY 04/20/18 [History] Atorvastatin [Lipitor] 10 mg PO HS 04/20/18 [History] CycloSPORINE, Mod (Neoral) [Neoral] 25 mg PO BID 04/20/18 [History] Levothyroxine Sodium [Levoxyl] 150 mcg PO DAILY 04/20/18 [History] Losartan Potassium [Cozaar] 100 mg PO DAILY 04/20/18 [History] Mag Hydrox/Al Hydrox/Simeth [Maalox] 15 ml PO Q6HR PRN 04/20/18 [History] Metoprolol [Lopressor] 25 mg PO BID 04/20/18 [History] Mycophenolate Sodium [Myfortic] 360 mg PO BID 04/20/18 [History] Sulfamethoxazole/Trimeth DS [Bactrim Ds] 1 each PO DAILY 04/20/18 [History] predniSONE [PredniSONE] 7.5 mg PO DAILY 04/20/18 [History] Apixaban [Eliquis] 5 mg PO AD #74 tablet 04/21/18 [Rx] Allergies/Adverse Reactions: Allergy/AdvReac Type Severity Reaction Status Date / Time shellfish derived Allergy Vomiting Verified 04/20/18 15:04 Date of admission: 04/22/18 07:35 Primary care physician: Caterina Bernal DO Consults: 04/20/18 19:45 Consult to Pulmonology [CONS] Stat Consulting Provider: [facility]achael Reason for Consult: PE Call Completed: No 04/21/18 06:32 Consult to Pulmonology [CONS] Routine Consulting Provider: [facility] Rachael Reason for Consult: Bilateral pulmonary embolism Call Completed: No 04/21/18 07:42 Consult to Oncology Hematology [CONS] Routine Consulting Provider: Esperanza Rene Reason for Consult: OAC for PE with h/o cancer and Liver transplant Call Completed: No - Constitutional Vitals: Temp Pulse Resp BP Pulse Ox 97.9 F 76 16 144/89 96 04/22/18 06:47 04/22/18 06:47 04/22/18 06:47 04/22/18 06:47 04/22/18 06:47 Exam: Gen.: Nonacute distress, alert and oriented 3 Skin: Normal color - Patient Status Disposition: Home, Self-Care Condition: Good - Discharge Instructions Instructions: Apixaban (By mouth), Pulmonary Embolism (DC), Pulmonary Embolism (GEN), Deep Venous Thrombosis (DC), Deep Venous Thrombosis (GEN) Follow Up With: Caterina Bernal DO [Primary Care Provider] - 04/27/18 10:20 am Jemima Moe MD [Partnered Physician] - 05/04/18 9:00 am
[2018-04-25] MEDS ORDERED: NON-FORMULARY MEDICATION 1 EACH EACH (Alendronate Sodium [Fosamax] 70 MG) PO SCH (01:04)
== END 2018-04-22 14:32 | disposition home or self-care (01) | DRG 176 ==
LOC: 2NENU 14:56 → EMEROOARM 14:56 → SUATTDRO 20:21 → 2NENU 23:35
PROVIDERS: ADMIT Family Medicine; ATTEND Hospitalist

== ENCOUNTER 2021-06-06 08:15 | Inpatient (IN) ==
[2021-06-06 08:55] LABS: Basophils % 0.2 %; Hemoglobin 10.9 g/dL (11.5-15.4); Lymphocytes # 0.5 K/mcL (0.6-4.6); Lymphocytes % 7.9 %; Mean Corpuscular HGB Conc 31.1 g/dL (31.6-35.5); Mean Corpuscular Hemoglobin 28.1 pg (28.0-33.3); Mean Corpuscular Volume 90.2 fL (83.0-100.0); Monocytes # 0.3 K/mcL (0.0-1.3); Platelet Count 193 K/mcL (140-400); Red Blood Count 3.88 M/mcL (3.82-4.97); Red Cell Distribution Width 14.9 % (11.5-14.5); Segmented Neutrophils % 85.9 %; White Blood Count 5.8 K/mcL (4.3-11.1)
[2021-06-06 08:59] LABS: VBG HCO3 16 mEq/L (21-27); VBG PCO2 36 mmHg (41-51); VBG PH 7.25 pH Units (7.32-7.42); VBG PO2 29 mmHg (25-50)
[2021-06-06 09:02] LABS: INR 1.4; Prothrombin Time 15.1 Seconds (9.4-12.1)
[2021-06-06 09:21] LABS: Albumin 3.7 g/dL (3.5-5.7); Albumin/Globulin Ratio 1.3 (1.1-2.2); Bilirubin,Direct 0.1 mg/dL (0.0-0.2); Bilirubin,Indirect 0.5 mg/dL (0.0-1.0); Bilirubin,Total 0.6 mg/dL (0.3-1.0); Calcium 8.8 mg/dL (8.6-10.3); Globulin 2.8 g/dL (2.4-3.5); Magnesium 1.4 mg/dL (1.6-2.6); Potassium 4.8 mEq/L (3.5-5.1); Total Protein 6.5 g/dL (6.4-8.9); Troponin I 0.64 ng/mL (< 0.04)
[2021-06-06] MEDS ORDERED: Acetaminophen IV 1,000 MG/100 ML BAG IVPB ONE (09:40)
[2021-06-06 09:53] LABS: Adenovirus Not Detected (Not Detect); Bordetella Pertussis Not Detected (Not Detect); Chlamydophila pneumoniae Not Detected (Not Detect); Coronavirus 229E Not Detected (Not Detect); Coronavirus HKU1 Not Detected (Not Detect); Coronavirus NL63 Not Detected (Not Detect); Coronavirus OC43 Not Detected (Not Detect); Human Metapneumovirus Not Detected (Not Detect); Human Rhinovirus/Enterovirus Not Detected (Not Detect); Influenza A Subtype 2009 H1 Not Detected (Not Detect); Influenza B Not Detected (Not Detect); Mycoplasma pneumoniae Not Detected (Not Detect); Parainfluenza Virus 1 Not Detected (Not Detect); Parainfluenza Virus 2 Not Detected (Not Detect); Parainfluenza Virus 3 Not Detected (Not Detect); Parainfluenza Virus 4 Not Detected (Not Detect); Respiratory Syncytial Virus Not Detected (Not Detect)
[2021-06-06 09:54] LABS: SARS-CoV-2 DETECTED (Not Detect)
[2021-06-06] MEDS ORDERED: 0.9 % Sodium Chloride 500 ML IV ONE (10:06)
[2021-06-06] MEDS ORDERED: Magnesium Sulfate 1 GM/102 ML PIGGYBACK IVPB ONE (10:06)
[2021-06-06] MEDS ORDERED: Dexamethasone Sodium Phos/PF 10 MG/ML VIAL IVP ONE (10:08)
[2021-06-06] MEDS ORDERED: Naloxone 0.4 MG/ML INJ IVP PRN (10:20)
[2021-06-06] MEDS ORDERED: Melatonin 3 MG TABLET PO PRN (10:20)
[2021-06-06] MEDS ORDERED: Acetaminophen 325 MG TABLET PO PRN (10:20)
[2021-06-06] MEDS ORDERED: *HR* OxyCODONE Immed Rel 5 MG TABLET PO PRN (10:20)
[2021-06-06] MEDS ORDERED: Ondansetron 4 MG/2 ML VIAL IVP PRN (10:20)
[2021-06-06 10:22] LABS: Bacteria,Urine Few per hpf (None-Few); Bilirubin,Urine Negative (Negative); Blood,Urine Large (Negative); Budding Yeast,Urine Few per hpf (None Seen); Clarity,Urine Turbid (Clear); Color,Urine Yellow (Yellow); Glucose,Urine (UA) Normal (Normal); Ketones,Urine Negative (Negative); Leukocyte Esterase,Urine Negative (Negative); Mucus,Urine Few per lpf (None-Few); Nitrite,Urine Negative (Negative); PH,Urine 5.5 pH Units (5.0-8.0); Protein,Urine >=300 mg/dL (Neg-Trace); Squamous Epithelial Cell,Urine Few per hpf (None-Few); Urobilinogen,Urine Normal (Normal)
[2021-06-06] MEDS: cefTRIAXone 1,000 MG in 0.9 % Sodium Chloride Mini Bag 100 ML IVPB SCH (12:57)
[2021-06-06 16:59] LABS: VBG HCO3 17 mEq/L (21-27); VBG PCO2 41 mmHg (41-51); VBG PH 7.24 pH Units (7.32-7.42); VBG PO2 64 mmHg (25-50)
[2021-06-06] MEDS ORDERED: Perflutren Lipid Microsphere 1.3 ML in 0.9 % Sodium Chloride 8.7 ML IVP PRN (18:08)
[2021-06-06] MEDS: Ipratropium/Albuterol Neb 3 ML IH SCH ×3 (20:03→20:15)
[2021-06-06] MEDS: Apixaban 5 MG TABLET PO SCH (21:42)
[2021-06-06] MEDS: Ipratropium 1 PUFF INHALER IH SCH (23:24)
[2021-06-07 01:50] LABS: Hemoglobin 10.9 g/dL (11.5-15.4); Mean Corpuscular HGB Conc 32.1 g/dL (31.6-35.5); Mean Corpuscular Hemoglobin 28.8 pg (28.0-33.3); Mean Corpuscular Volume 89.9 fL (83.0-100.0); Mean Platelet Volume 10.7 fL (9.4-12.4); Platelet Count 179 K/mcL (140-400); Red Blood Count 3.78 M/mcL (3.82-4.97); Red Cell Distribution Width 14.9 % (11.5-14.5)
[2021-06-07 01:52] LABS: White Blood Count 13.3 K/mcL (4.3-11.1)
[2021-06-07 02:33] LABS: Albumin 3.3 g/dL (3.5-5.7); Albumin/Globulin Ratio 1.3 (1.1-2.2); Bilirubin,Total 0.5 mg/dL (0.3-1.0); Calcium 8.4 mg/dL (8.6-10.3); Globulin 2.6 g/dL (2.4-3.5); Magnesium 1.8 mg/dL (1.6-2.6); Phosphorous 3.9 mg/dL (2.7-4.5); Potassium 5.4 mEq/L (3.5-5.1); Total Protein 5.9 g/dL (6.4-8.9); Troponin I 1.39 ng/mL (< 0.04)
[2021-06-07] MEDS: Ipratropium 1 PUFF INHALER IH SCH ×6 (03:13→23:07)
[2021-06-07] MEDS: Dexamethasone Sodium Phos/PF 10 MG/ML VIAL IVP SCH (09:23)
[2021-06-07] MEDS: Apixaban 5 MG TABLET PO SCH ×2 (09:23→22:45)
[2021-06-07] MEDS: cefTRIAXone 1,000 MG in 0.9 % Sodium Chloride Mini Bag 100 ML IVPB SCH (09:23)
[2021-06-07] MEDS: Aspirin Enteric Coated 81 MG Tablet PO SCH (09:23)
[2021-06-07] MEDS ORDERED: 0.9 % Sodium Chloride 1,000 ML IVC SCH (12:45)
[2021-06-07] MEDS ORDERED: Apixaban 5 MG TABLET PO SCH (21:00)
[2021-06-07] MEDS ORDERED: Patient Taking Own Medication 1 EACH PO SCH (21:00)
[2021-06-07] MEDS ORDERED: CycloSPORINE, Mod (Neoral) 25 MG CAPSULE PO SCH (21:00)
[2021-06-07] MEDS: Piperacillin/Tazobactam 3.375 GM in 0.9 % Sodium Chloride Mini Bag 100 ML IVPB SCH (22:46)
[2021-06-07] MEDS: CycloSPORINE, Mod (Neoral) 25 MG CAPSULE PO SCH (22:46)
[2021-06-08] MEDS: Ipratropium 1 PUFF INHALER IH SCH ×6 (03:13→23:35)
[2021-06-08 06:25] LABS: Hematocrit 32.6 % (35.3-44.9); Mean Corpuscular HGB Conc 30.7 g/dL (31.6-35.5); Mean Corpuscular Hemoglobin 28.1 pg (28.0-33.3); Mean Corpuscular Volume 91.6 fL (83.0-100.0); Mean Platelet Volume 10.3 fL (9.4-12.4); Platelet Count 199 K/mcL (140-400); Red Blood Count 3.56 M/mcL (3.82-4.97); Red Cell Distribution Width 14.8 % (11.5-14.5); White Blood Count 11.5 K/mcL (4.3-11.1)
[2021-06-08 06:37] LABS: Albumin 3.1 g/dL (3.5-5.7); Albumin/Globulin Ratio 1.2 (1.1-2.2); Bilirubin,Total 0.5 mg/dL (0.3-1.0); Globulin 2.6 g/dL (2.4-3.5); Potassium 4.8 mEq/L (3.5-5.1); Total Protein 5.7 g/dL (6.4-8.9)
[2021-06-08 06:39] LABS: Albumin 3.1 g/dL (3.5-5.7); Albumin/Globulin Ratio 1.1 (1.1-2.2); Bilirubin,Direct 0.2 mg/dL (0.0-0.2); Bilirubin,Indirect 0.3 mg/dL (0.0-1.0); Bilirubin,Total 0.5 mg/dL (0.3-1.0); Globulin 2.7 g/dL (2.4-3.5); Total Protein 5.8 g/dL (6.4-8.9)
[2021-06-08] MEDS: Dexamethasone Sodium Phos/PF 10 MG/ML VIAL IVP SCH (08:03)
[2021-06-08] MEDS: Piperacillin/Tazobactam 3.375 GM in 0.9 % Sodium Chloride Mini Bag 100 ML IVPB SCH ×2 (08:03→17:19)
[2021-06-08] MEDS: Apixaban 5 MG TABLET PO SCH ×2 (08:04→20:40)
[2021-06-08] MEDS: Aspirin Enteric Coated 81 MG Tablet PO SCH (08:04)
[2021-06-08] MEDS: cefTRIAXone 1,000 MG in 0.9 % Sodium Chloride Mini Bag 100 ML IVPB SCH (08:04)
[2021-06-08] MEDS ORDERED: *HR* Metoprolol 5 MG/5 ML VIAL IVP STA ×2 (08:24→08:38)
[2021-06-08] MEDS ORDERED: *HR* Metoprolol 5 MG/5 ML VIAL IVP ONE (08:39)
[2021-06-08] MEDS ORDERED: Sulfamethoxazole/Trimeth DS 1 EACH TABLET PO SCH (09:00)
[2021-06-08] MEDS ORDERED: *HR* Metoprolol 5 MG/5 ML VIAL IVP PRN (09:02)
[2021-06-08] MEDS ORDERED: *HR* Digoxin 0.5 MG/2 ML AMPUL IVP ONE (10:02)
[2021-06-08] MEDS: CycloSPORINE, Mod (Neoral) 25 MG CAPSULE PO SCH ×2 (10:30→20:41)
[2021-06-08] MEDS ORDERED: Amiodarone Premix 360 MG/200 ML BAG IVC ONE (10:46)
[2021-06-08] MEDS ORDERED: Amiodarone Premix 150 MG/100 ML BAG IVPB ONE (10:46)
[2021-06-08] MEDS: Amiodarone Premix 360 MG/200 ML BAG IVC SCH (18:31)
[2021-06-09] MEDS: Piperacillin/Tazobactam 3.375 GM in 0.9 % Sodium Chloride Mini Bag 100 ML IVPB SCH ×5 (00:47→20:50)
[2021-06-09 01:27] LABS: Hemoglobin 9.7 g/dL (11.5-15.4); Mean Corpuscular HGB Conc 31.3 g/dL (31.6-35.5); Mean Corpuscular Hemoglobin 28.5 pg (28.0-33.3); Mean Corpuscular Volume 91.2 fL (83.0-100.0); Mean Platelet Volume 10.8 fL (9.4-12.4); Platelet Count 188 K/mcL (140-400); Red Cell Distribution Width 14.9 % (11.5-14.5); White Blood Count 7.8 K/mcL (4.3-11.1)
[2021-06-09 01:40] LABS: INR 1.3; Prothrombin Time 14.5 Seconds (9.4-12.1)
[2021-06-09 01:44] LABS: Albumin/Globulin Ratio 1.1 (1.1-2.2); Bilirubin,Total 0.5 mg/dL (0.3-1.0); Calcium 7.6 mg/dL (8.6-10.3); Globulin 2.7 g/dL (2.4-3.5); Potassium 4.7 mEq/L (3.5-5.1); Total Protein 5.7 g/dL (6.4-8.9)
[2021-06-09 01:52] LABS: C-Reactive Protein 39 mg/L (Less than 10); Lactate Dehydrogenase 454 Units/L (140-271)
[2021-06-09 03:15] LABS: Ferritin 1452 ng/mL (10-120)
[2021-06-09] MEDS: Ipratropium 1 PUFF INHALER IH SCH ×6 (03:32→23:09)
[2021-06-09] MEDS: Amiodarone Premix 360 MG/200 ML BAG IVC SCH ×2 (05:02→16:22)
[2021-06-09] MEDS: Apixaban 5 MG TABLET PO SCH ×2 (07:43→20:51)
[2021-06-09] MEDS: Aspirin Enteric Coated 81 MG Tablet PO SCH (07:44)
[2021-06-09] MEDS: cefTRIAXone 1,000 MG in 0.9 % Sodium Chloride Mini Bag 100 ML IVPB SCH (07:45)
[2021-06-09] MEDS: Dexamethasone Sodium Phos/PF 10 MG/ML VIAL IVP SCH (07:46)
[2021-06-09] MEDS: CycloSPORINE, Mod (Neoral) 25 MG CAPSULE PO SCH (07:48)
[2021-06-09] MEDS: Artificial Tears SOLN 15 ML BOTTLE LEFT EYE SCH ×3 (12:55→20:51)
[2021-06-09] MEDS: Albumin 25% 25gram/100mL 25 GM/100 ML IV.SOLN IVPB SCH (16:19)
[2021-06-09] MEDS: Metoprolol XL (24 HR) Succ 50 MG TAB.ER.24H PO SCH (20:50)
[2021-06-10] MEDS: Albumin 25% 25gram/100mL 25 GM/100 ML IV.SOLN IVPB SCH ×3 (02:59→15:08)
[2021-06-10 03:33] LABS: Hematocrit 31.6 % (35.3-44.9); Hemoglobin 9.3 g/dL (11.5-15.4); Mean Corpuscular HGB Conc 29.4 g/dL (31.6-35.5); Mean Corpuscular Hemoglobin 27.4 pg (28.0-33.3); Mean Corpuscular Volume 92.9 fL (83.0-100.0); Mean Platelet Volume 10.9 fL (9.4-12.4); Platelet Count 204 K/mcL (140-400); Red Cell Distribution Width 14.9 % (11.5-14.5); White Blood Count 9.8 K/mcL (4.3-11.1)
[2021-06-10 03:41] LABS: INR 1.3; Prothrombin Time 14.2 Seconds (9.4-12.1)
[2021-06-10] MEDS: Ipratropium 1 PUFF INHALER IH SCH ×5 (03:41→19:17)
[2021-06-10 03:52] LABS: Albumin 3.3 g/dL (3.5-5.7); Albumin/Globulin Ratio 1.4 (1.1-2.2); Bilirubin,Direct 0.2 mg/dL (0.0-0.2); Bilirubin,Indirect 0.3 mg/dL (0.0-1.0); Bilirubin,Total 0.5 mg/dL (0.3-1.0); Calcium 7.6 mg/dL (8.6-10.3); Globulin 2.4 g/dL (2.4-3.5); Potassium 4.8 mEq/L (3.5-5.1); Total Protein 5.7 g/dL (6.4-8.9)
[2021-06-10 03:54] LABS: Uric Acid 8.6 mg/dL (2.3-7.6)
[2021-06-10 04:06] LABS: Thyroid Stimulating Hormone 0.459 mcIU/mL (0.340-5.600)
[2021-06-10] MEDS: Aspirin Enteric Coated 81 MG Tablet PO SCH (07:58)
[2021-06-10] MEDS: Metoprolol XL (24 HR) Succ 50 MG TAB.ER.24H PO SCH ×2 (07:59→19:40)
[2021-06-10] MEDS: Piperacillin/Tazobactam 3.375 GM in 0.9 % Sodium Chloride Mini Bag 100 ML IVPB SCH ×2 (07:59→19:40)
[2021-06-10] MEDS: Apixaban 5 MG TABLET PO SCH ×2 (07:59→19:39)
[2021-06-10] MEDS: Amiodarone Premix 360 MG/200 ML BAG IVC SCH (08:00)
[2021-06-10] MEDS: Dexamethasone Sodium Phos/PF 10 MG/ML VIAL IVP SCH (08:02)
[2021-06-10] MEDS: Artificial Tears SOLN 15 ML BOTTLE LEFT EYE SCH ×4 (08:02→19:50)
[2021-06-10 13:16] LABS: Protein/Creatinine Ratio,Urine 1.73 mg/mg (0.00-0.20); Sodium, Urine 32.3 mEq/L
[2021-06-11] MEDS: Ipratropium 1 PUFF INHALER IH SCH ×7 (00:11→23:33)
[2021-06-11 06:33] LABS: Hematocrit 30.6 % (35.3-44.9); Hemoglobin 9.5 g/dL (11.5-15.4); Mean Corpuscular Hemoglobin 28.5 pg (28.0-33.3); Mean Corpuscular Volume 91.9 fL (83.0-100.0); Mean Platelet Volume 11.1 fL (9.4-12.4); Platelet Count 254 K/mcL (140-400); Red Blood Count 3.33 M/mcL (3.82-4.97); Red Cell Distribution Width 14.8 % (11.5-14.5); White Blood Count 13.5 K/mcL (4.3-11.1)
[2021-06-11 06:53] LABS: Calcium 8.3 mg/dL (8.6-10.3); Potassium 5.1 mEq/L (3.5-5.1)
[2021-06-11] MEDS: Apixaban 5 MG TABLET PO SCH ×2 (08:02→21:04)
[2021-06-11] MEDS: Piperacillin/Tazobactam 3.375 GM in 0.9 % Sodium Chloride Mini Bag 100 ML IVPB SCH ×2 (08:02→21:01)
[2021-06-11] MEDS: Artificial Tears SOLN 15 ML BOTTLE LEFT EYE SCH ×4 (08:03→21:04)
[2021-06-11] MEDS: Metoprolol XL (24 HR) Succ 50 MG TAB.ER.24H PO SCH ×2 (08:03→21:04)
[2021-06-11] MEDS: Aspirin Enteric Coated 81 MG Tablet PO SCH (08:03)
[2021-06-11] MEDS: Dexamethasone Sodium Phos/PF 10 MG/ML VIAL IVP SCH (08:03)
[2021-06-11] MEDS ORDERED: Saliva Stimulant 44.3ml BOTTLE PO PRN (16:57)
[2021-06-12] MEDS: Ipratropium 1 PUFF INHALER IH SCH ×6 (03:51→23:30)
[2021-06-12 05:00] LABS: Hematocrit 32.3 % (35.3-44.9); Hemoglobin 9.4 g/dL (11.5-15.4); Mean Corpuscular HGB Conc 29.1 g/dL (31.6-35.5); Mean Corpuscular Hemoglobin 27.8 pg (28.0-33.3); Mean Corpuscular Volume 95.6 fL (83.0-100.0); Mean Platelet Volume 11.2 fL (9.4-12.4); Platelet Count 267 K/mcL (140-400); Red Blood Count 3.38 M/mcL (3.82-4.97); White Blood Count 13.8 K/mcL (4.3-11.1)
[2021-06-12 05:20] LABS: Calcium 8.9 mg/dL (8.6-10.3)
[2021-06-12] MEDS ORDERED: Dexmedetomidine HCl 400 MCG/100 ML MLS IVC SCH (10:15)
[2021-06-12] MEDS: Dexamethasone Sodium Phos/PF 10 MG/ML VIAL IVP SCH (10:23)
[2021-06-12] MEDS: *HR* LORazepam 2 MG/ML VIAL IVP PRN ×2 (10:23→16:43)
[2021-06-12] MEDS: Piperacillin/Tazobactam 3.375 GM in 0.9 % Sodium Chloride Mini Bag 100 ML IVPB SCH ×2 (10:24→20:21)
[2021-06-12] MEDS: Apixaban 5 MG TABLET PO SCH ×2 (11:15→21:08)
[2021-06-12] MEDS: Artificial Tears SOLN 15 ML BOTTLE LEFT EYE SCH ×3 (11:15→22:57)
[2021-06-12] MEDS: Aspirin Enteric Coated 81 MG Tablet PO SCH (11:15)
[2021-06-12] MEDS: SODIUM ZIRCONIUM CYCLOSILICATE 5 GM POWD.PACK PO SCH (11:16)
[2021-06-12] MEDS: Metoprolol XL (24 HR) Succ 50 MG TAB.ER.24H PO SCH ×2 (11:16→21:08)
[2021-06-12 22:25] LABS: Albumin 3.2 g/dL (3.5-5.7); Albumin/Globulin Ratio 1.3 (1.1-2.2); Bilirubin,Total 0.6 mg/dL (0.3-1.0); Calcium 8.8 mg/dL (8.6-10.3); Globulin 2.4 g/dL (2.4-3.5); Potassium 6.6 mEq/L (3.5-5.1); Total Protein 5.6 g/dL (6.4-8.9)
[2021-06-12] MEDS ORDERED: Insulin Human Regular 10 UNIT in 0.9 % Sodium Chloride 10 ML IV ONE (22:28)
[2021-06-12] MEDS ORDERED: *HR* Dextrose 50 % in Water (Vial) 50 ML VIAL IVP ONE (22:28)
[2021-06-12] MEDS ORDERED: *HR* Enoxaparin 80 MG/0.8 ML SYRINGE SQ SCH (22:30)
[2021-06-12] MEDS ORDERED: Calcium Gluconate 1gm/50mL 1 GM/50 ML BAG IVPB ONE (22:40)
[2021-06-12] MEDS: Albumin 25% 25gram/100mL 25 GM/100 ML IV.SOLN IVPB SCH (23:39)
[2021-06-13 03:03] LABS: Hemoglobin 8.6 g/dL (11.5-15.4); Red Cell Distribution Width 15.3 % (11.5-14.5)
[2021-06-13 03:04] LABS: Basophils # 0.1 K/mcL (0.0-0.2); Basophils % 0.8 %; Eosinophils % 0.1 %; Hematocrit 28.8 % (35.3-44.9); Immature Granulocytes % 7.7 % (0-4); Lymphocytes # 0.5 K/mcL (0.6-4.6); Lymphocytes % 3.5 %; Mean Corpuscular HGB Conc 29.9 g/dL (31.6-35.5); Mean Corpuscular Hemoglobin 28.5 pg (28.0-33.3); Mean Corpuscular Volume 95.4 fL (83.0-100.0); Mean Platelet Volume 11.3 fL (9.4-12.4); Monocytes # 0.5 K/mcL (0.0-1.3); Monocytes % 3.5 %; Neutrophils # 11.8 K/mcL (1.6-8.9); Nucleated Red Blood Cells 9.1 /100 WBC (0); Platelet Count 255 K/mcL (140-400); Red Blood Count 3.02 M/mcL (3.82-4.97); Segmented Neutrophils % 84.4 %
[2021-06-13] MEDS: Ipratropium 1 PUFF INHALER IH SCH ×2 (03:10→10:10)
[2021-06-13 03:24] LABS: Calcium 9.3 mg/dL (8.6-10.3); Potassium 6.1 mEq/L (3.5-5.1)
[2021-06-13] MEDS: *HR* LORazepam 2 MG/ML VIAL IVP PRN (06:07)
[2021-06-13] MEDS: Albumin 25% 25gram/100mL 25 GM/100 ML IV.SOLN IVPB SCH (06:08)
[2021-06-13] MEDS: Piperacillin/Tazobactam 3.375 GM in 0.9 % Sodium Chloride Mini Bag 100 ML IVPB SCH (07:44)
[2021-06-13] MEDS: Dexamethasone Sodium Phos/PF 10 MG/ML VIAL IVP SCH (07:46)
[2021-06-13] MEDS: Metoprolol XL (24 HR) Succ 50 MG TAB.ER.24H PO SCH (07:46)
[2021-06-13] MEDS: Aspirin Enteric Coated 81 MG Tablet PO SCH (07:46)
[2021-06-13] MEDS: SODIUM ZIRCONIUM CYCLOSILICATE 5 GM POWD.PACK PO SCH (07:46)
[2021-06-13] MEDS: Artificial Tears SOLN 15 ML BOTTLE LEFT EYE SCH (07:46)
[2021-06-13] MEDS ORDERED: Levothyroxine Sodium 100 MCG VIAL IVP SCH (09:00)
[2021-06-13 09:06] VITALS: BP 83/57; PULSE 90; O2SAT 91
[2021-06-13 10:49] VITALS: TEMP 98.3
[2021-06-13] MEDS ORDERED: *HR* LORazepam 2 MG/ML VIAL IVP PRN (11:09)
[2021-06-13] MEDS: *HR* FentaNYL (PF) 100 MCG/2 ML VIAL IVP PRN ×2 (11:35→13:28)
[2021-06-13] MEDS ORDERED: *HR* FentaNYL (PF) 100 MCG/2 ML VIAL IVP PRN (13:31)
[2021-06-13] MEDS ORDERED: Ipratropium 1 PUFF INHALER IH PRN (15:44)
[2021-06-13] MEDS ORDERED: Ipratropium 1 PUFF INHALER IH SCH (16:00)
[2021-06-13] MEDS ORDERED: Albumin 25% 25gram/100mL 25 GM/100 ML IV.SOLN IVPB SCH (21:02)
== END 2021-06-13 16:41 | disposition expired | DRG 870 ==
LOC: EMEROOARM 08:15 → 3NENU 08:15 → SUATTDRO 13:38
PROVIDERS: ADMIT Internal Medicine; ATTEND Student in an Organized Health Care Education/Training Program